=== PATIENT | female | born 1990 | race Caucasian/White ===

== ENCOUNTER 2017-11-03 14:28 | Emergency (ER) | payer SELFPAY ==
[~2017-11-03] VITALS: Ht 177.8 cm; Wt 88.5 kg
[2017-11-03 14:33] VITALS: BP 121/99; Ht 177.8 cm; Wt 88.5 kg
== END 2017-11-03 17:15 | disposition home or self-care (01) ==
LOC: ED 14:28
DX: S01.511A Laceration without foreign body of lip, initial encounter (principal); W54.0XXA Bitten by dog, initial encounter; Y93.89 Activity, other specified; Y92.89 Other specified places as the place of occurrence of the external cause; Y99.8 Other external cause status
CPT/HCPCS: 90715

== ENCOUNTER 2017-11-06 14:48 | Emergency (ER) | payer MEDICAID ==
[~2017-11-06] VITALS: Ht 154.9 cm; Wt 89.3 kg
[2017-11-06 14:57] VITALS: BP 137/92; Ht 154.9 cm; Wt 89.3 kg
== END 2017-11-06 15:38 | disposition home or self-care (01) ==
LOC: ED 14:48
DX: S01.552 Open bite of oral cavity (principal); W54.0XXD Bitten by dog, subsequent encounter